=== PATIENT | female | born 1965 | race Caucasian/White ===

== ENCOUNTER 2018-08-29 09:05 | Outpatient (CLI) | payer OTHER | END 2018-08-29 09:06 | disposition home or self-care (01) | LOC: CTENTCT 09:05 | PROVIDERS: ATTEND Otolaryngology Plastic Surgery within the Head & Neck | DX: J32.8 Other chronic sinusitis (principal) | CPT/HCPCS: 70486 ==

== ENCOUNTER 2018-09-25 20:30 | Outpatient (CLI) | payer OTHER | END 2018-09-25 20:31 | disposition home or self-care (01) | LOC: SLEEPLAB 20:30 | PROVIDERS: ATTEND Family Medicine | DX: G47.33 Obstructive sleep apnea (adult) (pediatric) (principal); F32.9 Major depressive disorder, single episode, unspecified; I10 Essential (primary) hypertension; E66.9 Obesity, unspecified; Z68.41 Body mass index [BMI] 40.0-44.9, adult | CPT/HCPCS: 95811 ==

== ENCOUNTER 2019-09-17 08:19 | Outpatient (CLI) | payer OTHER ==
[2019-09-17] MEDS ORDERED: Iopamidol 370 76% 100 ML VIAL ONE (09:00)
--- NOTE | 2019-09-17 10:31 | CT ---
CT ABDOMEN AND PELVIS WITH IV CONTRAST 09/17/2019 CLINICAL INFORMATION: Right upper quadrant abdominal pain with radiation of pain to the back. History of hysterectomy and c holecystectomy. COMPARISON: 06/14/2011. Technique: Multiple contiguous axial CT images are obtained through the abdomen and pelvis with IV contrast. Cor onal reformatted images are provided. FINDINGS: Lower Chest: There is a stable approximately 6 mm pulmonary nodule in the right lower lobe. Minimal l inear atelectasis is present in the lingula. Vessels: The abdominal aorta is normal in caliber without evidence of an aortic dissection. Abdomen: Portal vein:Patent Gallbladder: Surgically absent. Liver: Diminished attenuation similar to the prior study reflective of fatty infiltration. Spleen: within normal limits. Pancreas: within normal limits. Adrenals: within normal limits. Kidneys: within normal limits. Bowel: There is colonic diverticulosis. Small amount of retained fecal material is seen in the colon. Loops of small bowel are normal in caliber. There is suggestion of a tiny duodenal diverticulum involving the third portion of the duodenum. A hiatal hernia is now present with the fundus of the st omach above the level of the hemidiaphragms. Appendix: The appendix is visualized and normal in caliber. Peritoneum: No ascites or free air; no fluid collection. Mesentery and Retroperitoneum: No enlarged mesenteric or retroperitoneal lymph nodes. Abdominal Wall: within normal limits. Pelvis: Reproductive Organs: Evidence of hysterectomy. Pelvis within normal limits. Bladder: within normal limits. Bones: within normal limits. IMPRESSION: 1. No acute findings are seen in the abdomen or pelvis. 2. Fatty infiltration liver. 3. Colonic diverticulosis. 4. Cholecystectomy. 5. Hysterectomy. 6. Stable right lower lobe pulmonary nodule measuring 6 mm unchanged compared to study in 2010.
== END 2019-09-17 08:20 | disposition home or self-care (01) ==
LOC: SCSCT 08:19
PROVIDERS: ATTEND Family Medicine
DX: R10.11 Right upper quadrant pain (principal); Z90.710 Acquired absence of both cervix and uterus; K76.0 Fatty (change of) liver, not elsewhere classified; K57.30 Diverticulosis of large intestine without perforation or abscess without bleeding; R91.1 Solitary pulmonary nodule; Z90.49 Acquired absence of other specified parts of digestive tract
CPT/HCPCS: 74177; Q9967

== ENCOUNTER → 2022-10-06 | Day surgery (SDC) | payer BC ==
[~2022-10-06] MED LIST: Lidocaine Jelly 2% Urojet 10 ML ONE
== END | disposition home or self-care (01) ==
LOC: SDC 07:39
PROVIDERS: ATTEND Physician Assistant Medical
DX: K21.9 Gastro-esophageal reflux disease without esophagitis (principal); K44.9 Diaphragmatic hernia without obstruction or gangrene; R05.3 Chronic cough; J45.909 Unspecified asthma, uncomplicated; I10 Essential (primary) hypertension; E78.00 Pure hypercholesterolemia, unspecified; G47.30 Sleep apnea, unspecified; E66.9 Obesity, unspecified; Z68.41 Body mass index [BMI] 40.0-44.9, adult; Z79.899 Other long term (current) drug therapy
CPT/HCPCS: 91010; J2001

== ENCOUNTER 2023-05-20 07:20 | Outpatient (CLI) | payer BC ==
[2023-05-20 08:20] LABS: #Eosinphils 0.1 10x3/uL (0.0-0.5); #Monocytes 0.7 10x3/uL (0.0-1.1); #Neutrophils 8.2 10x3/uL (1.5-8.4); %Basophils 0.4 % (0.0-2.0); %Eosinophils 0.9 % (0.0-6.0); %Lymphocytes 15.9 % (18.0-47.0); %Monocytes 6.7 % (0.0-10.0); %Neutrophils 75.7 % (40.0-75.0); Mean Corpuscular HGB CONC 33.6 g/dL (32.0-36.0); Mean Corpuscular Hemoglobin 30.6 pg (27.0-33.0); Mean Corpuscular Volume 91.1 fl (81.6-98.3); Platelet Count 255 10x3/uL (150-450); RBC Distribution Width 12.3 % (11.5-14.5); Red Blood Cell (RBC) Count 3.27 10x6/uL (3.90-5.03); White Blood Cell (WBC) Count 10.8 10x3/uL (3.5-10.5)
[2023-05-20 08:29] LABS: Anion Gap 13 mmol/L (10-20); BUN (Urea Nitrogen) 27 mg/dL (9.8-20.1); Calc. Creatinine Clearance 0 mL/min (70-130); Calcium 9.1 mg/dL (7.8-10.44); Carbon Dioxide 29 mmol/L (22-29); Chloride 100 mmol/L (98-107); Estimated GFR 60; Glucose 98 mg/dL (70-105); Potassium 3.9 mmol/L (3.5-5.1); Sodium 138 mmol/L (136-145)
== END 2023-05-20 07:21 | disposition home or self-care (01) ==
LOC: LABBT 07:20
PROVIDERS: ATTEND Surgery
DX: Z01.818 Encounter for other preprocedural examination (principal); K44.9 Diaphragmatic hernia without obstruction or gangrene
CPT/HCPCS: 80048; 85025; 93005; 93010

== ENCOUNTER 2024-01-19 11:11 | Outpatient (CLI) | payer OTHER | END 2024-01-19 11:12 | disposition home or self-care (01) | LOC: BICCT 11:11 | PROVIDERS: ATTEND Surgery | DX: K44.1 Diaphragmatic hernia with gangrene (principal); K57.30 Diverticulosis of large intestine without perforation or abscess without bleeding; K22.89 Other specified disease of esophagus; Z93.1 Gastrostomy status; Z98.890 Other specified postprocedural states | CPT/HCPCS: 74177 ==

== ENCOUNTER 2024-04-06 17:03 | Emergency (ER) | payer OTHER ==
[~2024-04-06 17:03] MED LIST changes: +GASTROGRAFIN 30 ML BOT ONE; -Lidocaine Jelly 2% Urojet 10 ML ONE
[2024-04-06] MEDS ORDERED: Lidocaine 2% 6 ML (Jelly) SYR ONE (17:26)
== END 2024-04-06 18:40 | disposition home or self-care (01) ==
LOC: ERS 17:03
DX: Z43.1 Encounter for attention to gastrostomy (principal); I10 Essential (primary) hypertension
CPT/HCPCS: 43762; 74018; Q9963